=== PATIENT | male | born 1990 | race Caucasian/White ===

== ENCOUNTER 2016-09-06 21:33 | Emergency (ER) | payer OTHER ==
[~2016-09-06] VITALS: Ht 175.3 cm; Wt 79.4 kg
[~2016-09-06 21:33] MED LIST: ALBUTEROL0.09 MG/A1 INH; CLONIDINE0.1 MG PO; PEPCID20 MG PO; PERPHENAZINE8 MG PO; REGLAN10 MG PO; SERTRALINE HYD100 MG PO
[2016-09-06] MEDS ORDERED: SERTRALINE HCL100 MG PO (21:38)
--- NOTE | 2016-09-06 21:38 | ED DYSPNEA/ASTHMA COMPLAINT ---
History of Present Illness General Chief Complaint: Dyspnea (COPD, CHF, Other) Stated Complaint: BIBA SOB Source: patient Exam Limitations: no limitations Vital Signs & Intake/Output Vital Signs & Intake/Output Vital Signs Date Time Temp Pulse Resp B/P B/P Pulse O2 O2 Flow FiO2 Mean Ox Delivery Rate 09/06 2243 Room Air 09/06 2243 96.5 98 18 124/78 96 Room Air 09/06 2159 98 09/06 2136 101 17 125/66 98 Room Air ED Intake and Output 09/07 0000 09/06 1200 Intake Total Output Total Balance Patient 175 lb Weight Weight Estimated Measurement Method Allergies Coded Allergies: Sulfa (Sulfonamide Antibiotics) (UNKNOWN 09/06/16) Reconcile Medications Albuterol Sulfate (Ventolin Hfa) 90 MCG HFA.AER.AD 2 PUF INH AD PRN ASTHMA ( Reported) Albuterol Sulfate (Ventolin Hfa) 90 MCG HFA.AER.AD 2 PUF INH Q4-6 PRN PRN WHEEZING Benzonatate (Tessalon Perle) 100 MG CAPSULE 1 CAP PO TID PRN COUGH Clonidine HCl (Unknown Strength) TABLET (Unknown Dose) PO QPM UNKNOWN ( Reported) Codeine Phosphate/Guaifenesi (Cheratussin AC Syrup) 10 MG-100 MG/5 ML LIQUID 10 ML PO QPM PRN COUGH TAKE ONLY BEFORE BED, DO NOT OPERATE MOTOR VEHICLES WITH THIS MEDICATION Lansoprazole (Prevacid) 30 MG CAPSULE.DR 1 CAP PO DAILY GI (Reported) Methylprednisolone. (Medrol) 4 MG TAB.DS.PK 1 DP PO AD INFLAMMATION 6 on day 1 then reduce by one tablet daily until gone Perphenazine/Amitriptyline HCl (Perphen-Amitrip 4 MG-25 MG Tab) (Unknown Strength) TABLET (Unknown Dose) PO AD MENTAL HEALTH (Reported) Sertraline HCl (Unknown Strength) TABLET (Unknown Dose) PO DAILY MENTAL HEALTH (Reported) Triage Note: PT BIBA S/P ?ASTHMA ATTACK. PT STATES HE HAS HX OF ASTHMA, BENT OVER AT WORK AND COULD NOT CATCH HIS BREATH. PT ARRIVES WITH INHALER, STATES HE TOOK 6 PUFFS OF INHALER. PT ARRIVES 98% ON ROOM AIR. Triage Nurses Notes Reviewed? 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 No medications given via EMS arrival Patient also is complaining of chronic cough Denies any fever chills chest pain and arm pain jaw pain nausea vomiting abdominal pain back pain Denies any history of smoking (CRISPIN GARVIN) Past History Travel History Traveled to [place] past 21 day No Medical History Any Pertinent Medical History? see below for history Respiratory: asthma Renal: HYDROCELE Psychiatric: depression Surgical History Surgical History: non-contributory Psychosocial History What is your primary language Zimbabwean Tobacco Use: Current Not Daily Family History Hx Contributory? No (CRISPIN GARVIN) Review of Systems Review of Systems Constitutional: Denies: chills, fever. EENTM: Reports: no symptoms. Respiratory: Reports: see HPI, cough, short of breath. Cardiovascular: Reports: no symptoms. GI: Reports: no symptoms. Genitourinary: Reports: no symptoms. Musculoskeletal: Reports: no symptoms. Skin: Reports: no symptoms. Neurological/Psychological: Reports: no symptoms. Hematologic/Endocrine: Reports: no symptoms. Immunologic/Allergic: Reports: no symptoms. All Other Systems: Reviewed and Negative (CRISPIN GARVIN) Physical Exam Physical Exam General Appearance: no apparent distress, alert Respiratory: normal breath sounds, chest non-tender, no respiratory distress Comments: Well-developed well-nourished person in no acute distress HEENT: Normal EENT exam, extraocular motion intact, no nystagmus. Pupils equally round and reactive to light and accommodation. Nose is atraumatic. External auditory canal and Tympanic membranes clear. Pharynx normal. No swelling or edema. Neck: Supple, no lymphadenopathy, normal range of motion without pain or tenderness Back: Nontender, no CVA tenderness. Cardiovascular: Regular rate and rhythms no murmurs rubs or gallops, normal JVP Respiratory: Chest nontender. No respiratory distress.breath sounds clear to auscultation bilaterally Abdomen: Soft, nontender nondistended, no appreciable organomegaly. Normal bowel sounds. No ascites Extremity: No edema, no calf tenderness to palpation, normal and equal pulses. Neuro: Alert oriented x3, motor sensory normal, Skin: No appreciable rash on exposed skin, skin is warm and dry. Psych: Mood and affect is normal, memory and judgment is normal. Core Measures ACS in differential dx? No Severe Sepsis Present: No Septic Shock Present: No (CRISPIN GARVIN) Progress Differential Diagnosis: asthma, AMI, bronchitis, costochondritis, CHF, COPD, musculoskeletal pain, pericarditis, pulmonary embolism, pneumonia, pneumothorax, rib fracture, unstable angina Plan of Care: Orders Procedure Date/time Status XRY-CHEST XRAY, PA AND LATERAL 09/06 2137 Active Current Medications Sig/Casi Start time Last Medication Dose Stop Time Status Admin Albuterol Sulfate 3 ML ONCE ONE 09/06 2144 UNVr (Proventil) 09/06 2145 Guaifenesin 600 MG ONCE ONE 09/06 2144 UNVr (Mucinex) 09/06 2145 Ipratropium [place] 2.5 ML ONCE ONE 09/06 2144 UNVr (Atrovent) 09/06 2145 Prednisone 60 MG ONCE ONE 09/06 2144 UNVr 09/06 2145 Patient on initial examination was in no apparent distress afebrile oxygen saturation 98% room air clear lungs auscultation. Patient does note to have nonproductive cough Patient had unremarkable chest x-ray Patient was strongly advised to follow up with ENT doctor SERVANDO in which he states he has an establishment for his chronic postnasal drip Upon discharge patient looks well no apparent distress and will comply with discharge instructions and had no questions. Patient and father do admit that patient has had significant stressors lately making him feel more tired and exhausted however he does state that the cough keeps him up at night when he gets in verbal disagreements with his mother for persistent coughing. Patient was strongly advised to follow-up with pulmonology Patient on discharge had 99% room air oxygenation no respiratory distress (CRISPIN GARVIN) Diagnostic Imaging: Viewed by Me: Radiology Read. Radiology Impression: no acute abnormality, no fracture Initial ED EKG: none Comments: PATIENT: CHRISTINA SOTOMAYOR PRESENT AGE: 26 PATIENT ACCOUNT NO: [id number] : 91 LOCATION: [facility] ORDERING PHYSICIAN: CRISPIN KOCH SERVICE DATE: 09/06/16 EXAM TYPE: RAD - XRY-CHEST XRAY, PA AND LATERAL EXAMINATION: XR CHEST CLINICAL INFORMATION: Chronic cough. COMPARISON: None TECHNIQUE: 2 views of the chest were obtained. FINDINGS: No significant abnormality is noted involving the heart, lungs, mediastinum, bony thorax or soft tissues. IMPRESSION: Unremarkable examination. DICTATED BY: MAKI STINSON MD DATE/TIME DICTATED:09/06/162215 DIAMOND DIE DRILLER:JERSON (CRISPIN GARVIN) Departure Departure Disposition: HOME OR SELF CARE Condition: Stable Clinical Impression Primary Impression: Asthma Secondary Impressions: Cough Referrals: SHERRI GROVE,Yashira LAROSE Additional Instructions: As discussed continue home medications as directed. Begin the prescription of Tessalon Perles for cough and Cheratussin for cough at night. Begin the prescription of Ventolin for rescue inhaler. Begin the prescription of Medrol Dosepak tomorrow as you've have recieved prednisone in the emergency room today. If no better on Sunday follow-up and establish reinsurance analyst Yashira Love MD for further evaluation treatment and follow-up with your established ENT doctor. If symptoms worsen return to emergency room. Prescriptions are waiting at [facility] Begin [id number] Sudafed for congestion Departure Forms: Customer Survey General Discharge Information Prescriptions: Current Visit Scripts Codeine Phosphate/Guaifenesi (Cheratussin AC Syrup) 10 ML PO QPM PRN COUGH #120 ML TAKE ONLY BEFORE BED, DO NOT OPERATE MOTOR VEHICLES WITH THIS MEDICATION Methylprednisolone. (Medrol) 1 DP PO AD #1 DP 6 on day 1 then reduce by one tablet daily until gone Benzonatate (Tessalon Perle) 1 CAP PO TID PRN COUGH #21 CAP Albuterol Sulfate (Ventolin Hfa) 2 PUF INH Q4-6 PRN PRN WHEEZING #1 INHAL (CRISPIN GARVIN) PA/DINING MANAGER Co-Sign Statement Statement: ED Attending supervision documentation- [] I saw and evaluated the patient. I have also reviewed all the pertinent lab results and diagnostic results. I agree with the findings and the plan of care as documented in the PA's/DINING MANAGER's documentation. [x] I have reviewed the ED Record and agree with the PA's/DINING MANAGER's documentation. [] Additions or exceptions (if any) to the PAs/DINING MANAGER's note and plan are summarized below: [] (MARILU GROVE,DERIAN Gardiner) Critical Care Note Critical Care Note Critical Care Time: non-applicable (CRISPIN GARVIN)
[2016-09-06] MEDS ORDERED: CLONIDINE HCL0.1 MG PO (21:40)
[2016-09-06] MEDS ORDERED: VENTOLIN HFA18 GM INH ×2 (21:41→22:28)
[2016-09-06] MEDS ORDERED: PERPHEN-AMITRI1 EAC3 PO (21:41)
[2016-09-06] MEDS ORDERED: PREVACID30 M1 PO (21:41)
--- NOTE | 2016-09-06 22:20 | RADIOLOGY REPORT ---
EXAMINATION: XR CHEST CLINICAL INFORMATION: Chronic cough. COMPARISON: None TECHNIQUE: 2 views of the chest were obtained. FINDINGS: No significant abnormality is noted involving the heart, lungs, mediastinum, bony thorax or soft tissues. IMPRESSION: Unremarkable examination.
[2016-09-06] MEDS ORDERED: TESSALON PERLE100 M1 PO (22:28)
[2016-09-06] MEDS ORDERED: MEDROL4 M2 PO (22:28)
[2016-09-06] MEDS ORDERED: CHERATUSSIN AC118 M1 PO (22:28)
[2016-09-06 22:43] VITALS: BP 124/78
== END 2016-09-06 22:45 ==
LOC: ERH 21:33
DX: J45.909 Unspecified asthma, uncomplicated (principal); Z72.0 Tobacco use
CPT/HCPCS: 1263